=== PATIENT | male | born 1975 | race Caucasian/White ===

== ENCOUNTER 2022-07-29 20:16 | Emergency (ER) | payer OTHER, SELFPAY ==
[2022-07-29 20:17] VITALS: BP 140/63; PULSE 86; RESP 14; TEMP 36.1; O2SAT 99; BMI 30.5
--- NOTE | 2022-07-29 20:35 | EDS_ITS ---
HPI <JAVI Cabrales - Last Filed: 07/29/22 21:55> History of Present Illness Chief Complaint: Back Narrative Narrative: 46-year-old male presents with back spasms. He states he has had low back pain for 20 years and has been treated with chiropractor. He had an MRI last week and was told he had a bulging L4 disc. He is scheduled to have a spinal injection later this week. He states is actually been feeling better and today was at a [employer] league with his when suddenly his lower back started spasming and seizing up more so on the left side. He had to sit down and was unable to get up without assistance. He is not taking any pain relievers today. He denies any radicular pain, weakness, numbness or tingling, saddle anesthesia or bladder or bowel incontinence. There was no direct trauma [facility] <JAVI Cabrales - Last Filed: 07/29/22 21:55> [facility] Medical History (Updated 07/29/22 @ 21:[address] Carmelo Nassar MD) Chest pain Fatigue SOB (shortness of breath) Home Medications cyclobenzaprine 10 mg tablet 10 mg PO TID PRN Muscle Spasm #15 TABLETS 07/29/22 [Rx Last Taken Unknown] oxycodone-acetaminophen 5 mg-325 mg tablet (Endocet) 1 tab PO Q6H PRN pain 2 days #8 tabs 07/29/22 [Rx Last Taken Unknown] Allergy/AdvReac Type Severity Reaction Status Date / Time prednisone AdvReac Hives Verified 07/29/22 20:17 Surgical History (Updated 01/13/22 @ 18:01 by Magalis Tavares) eardrum surgery History of ankle surgery History of appendectomy hx of sutures: hand neck biopsy Social History (Updated 09/15/18 @ 16:47 by Elie CALDWELL PA) Smoking Status: Never smoker alcohol intake: never ROS <JAVI Cabrales - Last Filed: 07/29/22 21:55> ROS ED ROS Narrative Constitutional: Negative for fever, chills, malaise. CVS: Negative for palpitations, chest pain. Respiratory: Negative for shortness of breath. GI: Negative for abdominal pain, nausea, vomiting. : Negative for dysuria or incontinence. Neuro: Negative for motor/sensory dysfunction. Musc: Negative for joint pain, swelling, trauma. EXAM <JAVI Cabrales - Last Filed: 07/29/22 21:55> Physical Exam Narrative Exam Narrative: CONST: Patient lying in bed appears uncomfortable. NECK: Normal inspection. RESP: No respiratory distress, CTAB. CVS: Regular rate and rhythm, no murmur, no gallop. ABD: Soft and nontender, no guarding or rebound, nondistended. Back: Normal inspection,No midline tenderness or step-offs. Reproducible tenderness of the left lumbar muscles. SKIN: Color normal, no rash, warm, dry, intact. EXTREMITIES: Normal appearance, no pedal edema. 5/5 bilateral hip flexion, knee flexion/extension, and DF/PF. Sensation intact to light touch. 2+ DP pulses. NEURO: Oriented x4. PSYCH: Normal affect. Const Vital Signs: 07/29/22 20:17 Temperature 97 F L Temperature Source Temporal Pulse Rate 86 Respiratory Rate 14 Blood Pressure 140/63 H Blood Pressure Mean 88 Pulse Ox 99 Oxygen Delivery Method Room Air <Dr. Carmelo Nassar MD - Last Filed: 07/29/22 22:29> Physical Exam Const Vital Signs: 07/29/22 20:17 Temperature 97 F L Temperature Source Temporal Pulse Rate 86 Respiratory Rate 14 Blood Pressure 140/63 H Blood Pressure Mean 88 Pulse Ox 99 Oxygen Delivery Method Room Air MDM <JAVI Cabrales - Last Filed: 07/29/22 21:55> MDM MDM Narrative Medical decision making narrative: History gathered from: Patient, Patient is having left lower back spasms. He has had this in the past. There was no new injury. He appears uncomfortable but nontoxic. He has no midline spinal tenderness or step-offs. Slight reproducible tenderness of the left lumbar muscles. Lower extremity MSPs and reflexes are intact. I considered an MRI but there are no red flag symptoms concerning for cauda equina or epidural abscess. He states his MRI last week showed a mild L4 disc bulge. He will be treated symptomatically with Toradol and Norflex but on reevaluation at 2130 he is still having significant pain so I ordered morphine and Ativan. Patient will be reassessed and plan will be to discharge home with short prescription of Percocet and Flexeril. He states he is following up with his chiropractor tomorrow and the spinal doctor later this week. External records reviewed: MRI lumbar spine from 07/19/2022 shows mild L1-L2 and L4-L5 disc bulging with mild canal stenosis. <Dr. Carmelo Nassar MD - Last Filed: 07/29/22 22:29> [facility] Treatment and Re-Evaluation Narrative: Seen and evaluated independently and in conjunction with physician digital sales assistant. Agree with notes above unless documented otherwise. Patient states after bowling, he had gradual onset of muscle spasms with severe pain in his right low back. He has had this pain before. It is worse tonight. He lowered himself to the floor as the pain was increasing, he states this was because of his back and not his legs. He had no leg weakness, paresthesias, or other radicular symptoms. He has had no bowel or bladder dysfunction. On exam straight leg raises are negative, they cause back spasms. He has normal reflexes. Normal strength. Plan is symptomatic treatment so we can get him feeling better, then supportive care afterwards he is comfortable with that plan. Discharge Plan Triage Chief Complaint: Back ED Midlevel Provider: Noelle Sawant ED Provider: Carmelo Nassar Dx/Rx/DC Orders Clinical Impression: Acute myofascial strain of lumbosacral region, Spasm of muscle of lower back Instructions: Muscle Spasm, Relieving Back Pain Prescriptions: New cyclobenzaprine 10 mg tablet 10 mg PO TID PRN (Reason: Muscle Spasm) Qty: 15 0RF oxycodone-acetaminophen [Endocet] 5-325 mg tablet 1 tab PO Q6H PRN (Reason: pain) 2 Days Qty: 8 0RF Primary Care Provider: Lucio Day Referrals: Lucio Day MD [Primary Care Provider] - Activity Restrictions/Additional Instructions: I prescribed muscle relaxers and Percocet if needed. I also recommend ibuprofen 6 or 800 mg every 6 hours. Use heat or ice and follow-up with your doctor. Disposition Disposition: Home, Self Care Discharge Date/Time: 07/29/22 22:25
[2022-07-29] MEDS: Orphenadrine 60 MG/2 ML Ampul IM (20:48)
[2022-07-29] MEDS: Ketorolac 30 MG/ML Syringe IM (20:48)
[2022-07-29] MEDS: LORazepam 0.5 MG Tablet PO (21:42)
[2022-07-29] MEDS: morphine 8 MG/ML Syringe 6 MG IM (21:42)
== END 2022-07-29 22:25 | disposition home or self-care (01) ==
PROVIDERS: Emergency Provider Emergency Medicine; PCP Family Medicine; Visit Provider Emergency Medicine
DX: S39.012A Strain of muscle, fascia and tendon of lower back, initial encounter (principal); M62.838 Other muscle spasm; M51.36 Other intervertebral disc degeneration, lumbar region; X58.XXXA Exposure to other specified factors, initial encounter
CPT/HCPCS: 96372; 99282

== ENCOUNTER → 2023-01-08 | Outpatient (CLI) | payer OTHER, SELFPAY ==
[2023-01-08 12:22] LABS: Absolute Lymphocyte Count 2.43 X10^3/uL (0.83-4.51); Absolute Neutrophil Count 4.1 X10^3/uL (2.0-7.7); Basophil# 0.05 X10^3/uL; Basophil% 0.7 % (0-1); Eosinophil# 0.24 X10^3/uL; Eosinophils% 3.2 % (0-5); Hematocrit 44.6 % (40-54); Hemoglobin 14.2 g/dL (13.0-16.5); Lymphocyte # 2.43 X10^3/ul (0.83-4.51); Lymphocyte % 32.6 % (19-41); Mean Corp Hgb Conc 31.8 g/dL (32-36); Mean Platelet Vol. 10.9 fl (6.2-12.0); Monocyte# 0.63 X10^3/uL; Monocyte% 8.4 % (0-10); NRBC Flagged by Analyzer 0 % (0-5); Neutrophil # 4.08 X10^3/uL (2.7-7.7); Neutrophil % 54.7 % (47-70); Platelet Count 254 K/mm3 (150-450); RBC Distribution Width CV 12.1 % (11.6-14.6); White Blood Count 7.5 K/mm3 (4.4-11.0)
[2023-01-08 12:51] LABS: Vitamin D,25 Hydroxy 49.5 ng/mL
[2023-01-08 13:06] LABS: ALB/GLOB Ratio 0.9 RATIO (0.9-2.4); AST(SGOT) 18 U/L (15-37); Alanine Aminotransfer ALT/SGPT 25 U/L (16-61); Albumin, Serum 3.5 g/dL (3.2-5.0); Alkaline Phosphatase 52 U/L (45-117); Anion Gap 2 (5-15); BUN 16 mg/dL (7-18); BUN/Creat Ratio 9.8 RATIO (10-20); Calcium,Total 8.7 mg/dL (8.5-10.1); Chloride 108 mmol/L (98-107); Cholesterol 210 mg/dL (200); Creatinine, Serum 1.64 mg/dL (0.70-1.30); EST Glomerular Filtration Rate 48 mL/min (>60); Est Glom Filt Rate - Afr Amer 58 mL/min (>60); Globulin 3.9 g/dL (2.2-4.2); Glucose 100 mg/dL (74-106); High Density Lipoprotein 38 mg/dL; Potassium 3.9 mmol/L (3.5-5.1); Protein, Total 7.4 g/dL (6.4-8.2); Sodium Level 140 mmol/L (136-145); Thyroid Stim Hormone (TSH) 2.69 uIU/mL (0.358-3.74); Triglycerides 164 mg/dL; Very Low Density Lipoprotein 33 mg/dL (5-40)
[2023-01-14 14:14] LABS: Testosterone Free 9.6 pg/mL (6.8-21.5)
== END | disposition home or self-care (01) ==
LOC: BIMLAB 08:04
PROVIDERS: PCP Internal Medicine; Visit Provider Internal Medicine
DX: R39.198 Other difficulties with micturition (principal); F32.1 Major depressive disorder, single episode, moderate; Z91.89 Other specified personal risk factors, not elsewhere classified; Z13.6 Encounter for screening for cardiovascular disorders
CPT/HCPCS: 36415; 80053; 80061; 82306; 84153; 84402; 84443; 85025

== ENCOUNTER 2025-01-04 16:50 | Outpatient (RCR) | payer OTHER, SELFPAY ==
--- NOTE | 2025-01-07 09:40 | HP.FCE ---
Task Lift Floor (Occasional 1-33% of Day): NA Floor (Frequent 34-66% of Day): NA Floor (Constant 67-100% of Day): NA Floor PDL: No Ability Knee (Occasional 1-33% of Day): 15# Knee (Frequent 34-66% of Day): 8# Knee (Constant 67-100% of Day): NA Knee PDL: Sedentary-Light Waist (Occasional 1-33% of Day): 15# Waist (Frequent 34-66% of Day): 8# Waist (Constant 67-100% of Day): NA Waist PDL: Sedentary-Light Shoulder (Occasional 1-33% of Day): 10# Shoulder (Frequent 34-66% of Day): NA Shoulder (Constant 67-100% of Day): NA Shoulder PDL: Sedentary Overhead (Occasional 1-33% of Day): NA Overhead (Frequent 34-66% of Day): NA Overhead (Constant 67-100% of Day): NA Overhead PDL: No Ability Comments: pt reports he feels a pulling tension in his low back with picking up wt. Physical demand level of Sedentary-Light for lifting from knee, waist levels Physical demand level of Sedentary for lifting at shoulder level No constant lift ability due to pain. Pain is limiting factor with lifting tasks. Work Activity/Posture Bending: Occasional Ability (1-33% of day) Comments: with external support ( limited motion) Squatting: No Ablility (0% of day) Kneeling: No Ablility (0% of day) Reaching out: Occasional Ability (1-33% of day) Reaching up: Occasional Ability (1-33% of day) Sitting: Occasional Ability (1-33% of day) Walking: Occasional Ability (1-33% of day) Standing: Occasional Ability (1-33% of day) Reference Reference: Duration Sedentary Sedentary Light Light Light Medium Medium Medium Heavy Very Heavy Heavy Occasional (0-33% of day) Frequent (34-66% of day) Constant (67-100% of day) 10 # Negligible Negligible 15 # 8 # Negligible 20 # 10# Negli. 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 Pt states only happened once and this was not painful. pt states he was probably 31 years old. pt states when he was 34 and 35 years old he started having more back pain. Then pt states his back pain increased the last 3-4 years. He states he did see a spine surgeon at this time a Dr. King ( he rec'd pt to a cardiovascular disease specialist at [facility] who recommended back sx.) insurance denied sx (x 4) pt then started getting injections 3.5 years a go and he has been getting 3-4 injections per year. pt states with is first injection he felt great-- but since his last injection only lasted maybe a week. pt states he has been to chiropractor and physical therapy as well as using a decompression table 2-3 x a week. Pt states pain become so painful he could not put his shoes. on. pt states he did not know what to do so he started reaching out to . pt states the spine surgeon did recommend sx but due to insurance denied his surgery. pt states they appealed the denial and still was denied. pt states he sees chiropractor for decompression and this is the only thing that helps decrease pain. pt also getting his pain mtg. to perform injections. states initial injection felt successful but following injections no sig. decrease in his pain. Diagnoses Diagnoses: Radiculopathy of lumbar region ( 2018ish) budging disk L5-S1 DDD Low Back pain Right hip pain left hip pain Bilateral leg weakness [place] (hearing aids) Symptoms Symptoms: Low back pain Bilateral leg weakness Bilateral Hip pain Neck pain Interrupted gait pattern Pain Pain: pt states 12/01. pt states he did take tramadol around Noon today. 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 pt states he was taking more time to go to [employer] due to his back pain then being productive at work. Pt states prior to this Job [employer] (Partner) pt states was partnered with them for 2 years and worked there for 6 years. 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 pt states he had a good opportunity to be challenged in a different environment and took his position at [facility]) Behavioral Behavioral: pt cooperative throughout the assessment. ADLS ADLS: Pt state he lives with in a 1 story home with two entry steps. pt does have railing if needed. pt states they have a walk in shower and getting in and out of bathtub with help. pt can not reach past his knees without a increase in pain. Pts helps with LE bathing/dressing. does all the daily tasks due to pts inability to lift or bend forward. pt does drive on occasions pt has two grown son's but they live out of town. Initially hired services for the yard work but became too expensive so his does the yard work also. Physical Examination ROM: pt demo UB ROM WNL LB ROM WFL pt demo limited forward lumbar flextion Strength: Fit2 peak force in lbs shoulder flexion right 4# left 6# ( pain with resistance) shoulder extension right 13# left 14# ( pain with resistance) Biceps right 14# left 11# ( pain with resistance) Triceps right 12# left 12# (pain with resistance) Hip flexion right 5# left 9# ( pain with resistance) Quadriceps right 20# left 20# (pain with resistance) Hamstrings right 22# left 23# (pain with resistance) pt reports a increase in pain with resistance Right Label Cutter Strength Average: 98.33 Right Label Cutter Strength Percentile: 18% Left Label Cutter Strength Average: 115.00 Left Label Cutter Strength Percentile: 66% Right Lateral Pinch Average: 21.33 Right Lateral Pinch Percentile: 50% Left Lateral Pinch Average: 22.66 Left Lateral Pinch Percentile: 75% Right Tripod Pinch Average: 15.33 Right Tripod Pinch Percentile: 10% Left Tripod Pinch Average: 16.66 Left Tripod Pinch Percentile: 25% Sensation: denies Fine Motor: denies issues Balance: no loss of balance noted throughout assessment. pt guarded with ridged straight spine with all movement patterns Non Material Handling Activities Bending: pt demo the ability to bend forward 3/3x in limnited plane of motion ( able to get to knee level) 4/10x pt states he stops when he feels pinching sensation he stops -pt use of external support 8/10 pain heart rate 88 Squatting: pt demo the ability to squat 3/3x with external support in limited plane of motion. pt unable to perform further due to increase in pain heart rate 98 pt can squat on low occasional ability with use of UB for support Kneeling: unable Reaching out/up: pt demo the ability to reach out 3/3x, 10/10x, 10/10 rapidly with increase in back pain ( 7/10) pt can reach out on occasional ability pt demo the ability to reach up 3/3x with increase pain 5/10 ( unable to reach up 10x rapidly due to pain) pt can reach out on low occasional ability Walking: pt ambulates with an guarded posture ( limited UB motion with step pattern) antalgic gait pattern for 3 min prior to stopping for rest. pt had 2 min rest and finished ambulation for 100 feet. pt can ambulate on occasional ability. Standing: pt demo ability to stand for 4 min shifting body weight- pt can stand on occasional ability Sitting: pt demo guarded position with siting placing weight in UB leaning on UB. pt demo the ability to sit for 45 min . pt never able to sit back in his chair- leaned forward arms on arm rest off putting his body weight. pt can sit on occasional ability Climbing Stairs: pt demo the ability to ascend 10 steps with a reciprocal step pattern and use of railing for support. descending pt leaning heavily on UB with reciprocal slow step pattern. Dynamic Occasional Lifting Capacity Floor Lift: unable Knee Lift: pt demo the ability to lift 15# from knee level with fair lifting mechanics. Waist Lift: pt demo the ability to lift 15# maximally from waist level. pt feeling a pulling sensation down his spine and fearful to lift any further weights. Shoulder Lift: pt demo the ability to lift 8# at shoulder level- pt fearful of lifting any weight out in front of him as this he feels puts more pressure on his spine. Overhead Lift: NA Carrying: pt demo the ability to carry 10# 95 heart rate pt holding weight close to body and walking with guarded posture with Comments: pt demo with guarded posturing throughout assessment. pt states he stopped lifting and moving when he feels increase in tension/pain in his low back
--- NOTE | 2025-01-07 09:40 | HP.FCE ---
Task Lift Floor (Occasional 1-33% of Day): NA Floor (Frequent 34-66% of Day): NA Floor (Constant 67-100% of Day): NA Floor PDL: No Ability Knee (Occasional 1-33% of Day): 15# Knee (Frequent 34-66% of Day): 8# Knee (Constant 67-100% of Day): NA Knee PDL: Sedentary-Light Waist (Occasional 1-33% of Day): 15# Waist (Frequent 34-66% of Day): 8# Waist (Constant 67-100% of Day): NA Waist PDL: Sedentary-Light Shoulder (Occasional 1-33% of Day): 10# Shoulder (Frequent 34-66% of Day): NA Shoulder (Constant 67-100% of Day): NA Shoulder PDL: Sedentary Overhead (Occasional 1-33% of Day): NA Overhead (Frequent 34-66% of Day): NA Overhead (Constant 67-100% of Day): NA Overhead PDL: No Ability Comments: pt reports he feels a pulling tension in his low back with picking up wt. Physical demand level of Sedentary-Light for lifting from knee, waist levels Physical demand level of Sedentary for lifting at shoulder level No constant lift ability due to pain. Pain is limiting factor with lifting tasks. Work Activity/Posture Bending: Occasional Ability (1-33% of day) Comments: with external support ( limited motion) Squatting: No Ablility (0% of day) Kneeling: No Ablility (0% of day) Reaching out: Occasional Ability (1-33% of day) Reaching up: Occasional Ability (1-33% of day) Sitting: Occasional Ability (1-33% of day) Walking: Occasional Ability (1-33% of day) Standing: Occasional Ability (1-33% of day) Reference Reference: Duration Sedentary Sedentary Light Light Light Medium Medium Medium Heavy Very Heavy Heavy Occasional (0-33% of day) Frequent (34-66% of day) Constant (67-100% of day) 10 # Negligible Negligible 15 # 8 # Negligible 20 # 10# Negli. 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 Pt states only happened once and this was not painful. pt states he was probably 31 years old. pt states when he was 34 and 35 years old he started having more back pain. Then pt states his back pain increased the last 3-4 years. He states he did see a spine surgeon at this time a Dr. King ( he rec'd pt to a legal recovery specialist at [facility] who recommended back sx.) insurance denied sx (x 4) pt then started getting injections 3.5 years a go and he has been getting 3-4 injections per year. pt states with is first injection he felt great-- but since his last injection only lasted maybe a week. pt states he has been to chiropractor and physical therapy as well as using a decompression table 2-3 x a week. Pt states pain become so painful he could not put his shoes. on. pt states he did not know what to do so he started reaching out to . pt states the spine surgeon did recommend sx but due to insurance denied his surgery. pt states they appealed the denial and still was denied. pt states he sees chiropractor for decompression and this is the only thing that helps decrease pain. pt also getting his pain mtg. to perform injections. states initial injection felt successful but following injections no sig. decrease in his pain. Diagnoses Diagnoses: Radiculopathy of lumbar region ( 2018ish) budging disk L5-S1 DDD Low Back pain Right hip pain left hip pain Bilateral leg weakness [place] (hearing aids) Symptoms Symptoms: Low back pain Bilateral leg weakness Bilateral Hip pain Neck pain Interrupted gait pattern Pain Pain: pt states 12/01. pt states he did take tramadol around Noon today. 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 pt states he was taking more time to go to [employer] due to his back pain then being productive at work. Pt states prior to this Job [employer] (Part[employer]) pt states was partnered with them for 2 years and worked there for 6 years. 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 pt states he had a good opportunity to be challenged in a different environment and took his position at [facility]) Behavioral Behavioral: pt cooperative throughout the assessment. ADLS ADLS: Pt state he lives with in a 1 story home with two entry steps. pt does have railing if needed. pt states they have a walk in shower and getting in and out of bathtub with help. pt can not reach past his knees without a increase in pain. Pts helps with LE bathing/dressing. does all the daily tasks due to pts inability to lift or bend forward. pt does drive on occasions pt has two grown son's but they live out of town. Initially hired services for the yard work but became too expensive so his does the yard work also. Physical Examination ROM: pt demo UB ROM WNL LB ROM WFL pt demo limited forward lumbar flextion Strength: Fit2 peak force in lbs shoulder flexion right 4# left 6# ( pain with resistance) shoulder extension right 13# left 14# ( pain with resistance) Biceps right 14# left 11# ( pain with resistance) Triceps right 12# left 12# (pain with resistance) Hip flexion right 5# left 9# ( pain with resistance) Quadriceps right 20# left 20# (pain with resistance) Hamstrings right 22# left 23# (pain with resistance) pt reports a increase in pain with resistance Right Hybrid Powertrain Development Engineer Strength Average: 98.33 Right Hybrid Powertrain Development Engineer Strength Percentile: 18% Left Hybrid Powertrain Development Engineer Strength Average: 115.00 Left Hybrid Powertrain Development Engineer Strength Percentile: 66% Right Lateral Pinch Average: 21.33 Right Lateral Pinch Percentile: 50% Left Lateral Pinch Average: 22.66 Left Lateral Pinch Percentile: 75% Right Tripod Pinch Average: 15.33 Right Tripod Pinch Percentile: 10% Left Tripod Pinch Average: 16.66 Left Tripod Pinch Percentile: 25% Sensation: denies Fine Motor: denies issues Balance: no loss of balance noted throughout assessment. pt guarded with ridged straight spine with all movement patterns Non Material Handling Activities Bending: pt demo the ability to bend forward 3/3x in limnited plane of motion ( able to get to knee level) 4/10x pt states he stops when he feels pinching sensation he stops -pt use of external support 8/10 pain heart rate 88 Squatting: pt demo the ability to squat 3/3x with external support in limited plane of motion. pt unable to perform further due to increase in pain heart rate 98 pt can squat on low occasional ability with use of UB for support Kneeling: unable Reaching out/up: pt demo the ability to reach out 3/3x, 10/10x, 10/10 rapidly with increase in back pain ( 7/10) pt can reach out on occasional ability pt demo the ability to reach up 3/3x with increase pain 5/10 ( unable to reach up 10x rapidly due to pain) pt can reach out on low occasional ability Walking: pt ambulates with an guarded posture ( limited UB motion with step pattern) antalgic gait pattern for 3 min prior to stopping for rest. pt had 2 min rest and finished ambulation for 100 feet. pt can ambulate on occasional ability. Standing: pt demo ability to stand for 4 min shifting body weight- pt can stand on occasional ability Sitting: pt demo guarded position with siting placing weight in UB leaning on UB. pt demo the ability to sit for 45 min . pt never able to sit back in his chair- leaned forward arms on arm rest off putting his body weight. pt can sit on occasional ability Climbing Stairs: pt demo the ability to ascend 10 steps with a reciprocal step pattern and use of railing for support. descending pt leaning heavily on UB with reciprocal slow step pattern. Dynamic Occasional Lifting Capacity Floor Lift: unable Knee Lift: pt demo the ability to lift 15# from knee level with fair lifting mechanics. Waist Lift: pt demo the ability to lift 15# maximally from waist level. pt feeling a pulling sensation down his spine and fearful to lift any further weights. Shoulder Lift: pt demo the ability to lift 8# at shoulder level- pt fearful of lifting any weight out in front of him as this he feels puts more pressure on his spine. Overhead Lift: NA Carrying: pt demo the ability to carry 10# 95 heart rate pt holding weight close to body and walking with guarded posture with Comments: pt demo with guarded posturing throughout assessment. pt states he stopped lifting and moving when he feels increase in tension/pain in his low back
--- NOTE | 2025-01-07 09:40 | HP.OTFCE.D ---
FCE D/C Summary Discharge text: JACOBO Vashti EMERSON was seen for a one time visit for an FCE on 01/04/25 and is discharged.
--- NOTE | 2025-01-07 09:40 | HP.OTFCE.D ---
FCE D/C Summary Discharge text: JACOBO Vashti EMERSON was seen for a one time visit for an FCE on 01/04/25 and is discharged.
== END 2025-01-04 19:00 | disposition home or self-care (01) ==
LOC: OT 16:50
PROVIDERS: PCP Internal Medicine
DX: M54.16 Radiculopathy, lumbar region (principal)
CPT/HCPCS: 97750